=== PATIENT | male | born 1995 | race Caucasian/White ===

== ENCOUNTER 2018-05-05 19:57 | Emergency (ER) | payer OTHER ==
[2018-05-05] MEDS: DERMABOND TOPICAL SKIN ADHESIVE TOP (22:25)
== END 2018-05-05 22:52 | disposition home or self-care (01) ==
LOC: M ED 19:57
DX: S02.2XXB Fracture of nasal bones, initial encounter for open fracture (principal); X58.XXXA Exposure to other specified factors, initial encounter; Y92.9 Unspecified place or not applicable; Y93.9 Activity, unspecified; Y99.9 Unspecified external cause status
CPT/HCPCS: 70486